=== PATIENT | female | born 1990 | race Caucasian/White ===

== ENCOUNTER → 2020-03-31 20:35 | Observation (INO) | END | disposition home or self-care (01) | LOC: 1NENULAB | PROVIDERS: ADMIT Student in an Organized Health Care Education/Training Program; ATTEND Student in an Organized Health Care Education/Training Program ==

== ENCOUNTER 2020-04-24 05:11 | Inpatient (IN) ==
[2020-04-24] MEDS ORDERED: Azithromycin 500 MG in 0.9 % Sodium Chloride 250 ML IVPB ONE (05:22)
[2020-04-24] MEDS ORDERED: Naloxone 0.4 MG/ML INJ IVP PRN ×2 (05:22→13:47)
[2020-04-24] MEDS ORDERED: Metoclopramide 10 MG/2 ML VIAL IVP PRN ×2 (05:22→13:47)
[2020-04-24] MEDS ORDERED: Famotidine 20 MG/2 ML VIAL IVP PRN (05:22)
[2020-04-24] MEDS ORDERED: Ringers Solution, Lactated 1,000 ML IVC SCH ×2 (05:30→13:47)
[2020-04-24 06:15] LABS: Bilirubin,Urine Negative (Negative); Blood,Urine Negative (Negative); Clarity,Urine Turbid (Clear); Color,Urine Yellow (Yellow); Glucose,Urine (UA) Normal (Normal); Hyaline Casts,Urine Few per lpf (None Seen); Ketones,Urine Negative (Negative); Leukocyte Esterase,Urine Negative (Negative); Mucus,Urine Few per lpf (None-Few); Nitrite,Urine Negative (Negative); PH,Urine 6.5 pH Units (5.0-8.0); Protein,Urine Trace mg/dL (Neg-Trace); RBC,Urine 0-3 per hpf (0-3); Specific Gravity,Urine 1.021 (1.010-1.025); Squamous Epithelial Cell,Urine Moderate per hpf (None-Few); Urobilinogen,Urine Normal (Normal); WBC,Urine 0-3 per hpf (0-3)
[2020-04-24 06:17] LABS: Basophils % 0.2 %; Eosinophils # 0.2 K/mcL (0.0-0.6); Eosinophils % 1.4 %; Hematocrit 37.4 % (35.3-44.9); Hemoglobin 12.1 g/dL (11.5-15.4); Immature Granulocytes % 0.4 % (0-4); Lymphocytes # 2.9 K/mcL (0.6-4.6); Lymphocytes % 23.3 %; Mean Corpuscular HGB Conc 32.4 g/dL (31.6-35.5); Mean Corpuscular Hemoglobin 28.7 pg (28.0-33.3); Mean Corpuscular Volume 88.8 fL (83.0-100.0); Mean Platelet Volume 11.8 fL (9.4-12.4); Monocytes # 0.9 K/mcL (0.0-1.3); Monocytes % 7.2 %; Neutrophils # 8.3 K/mcL (1.6-8.9); Platelet Count 186 K/mcL (140-400); Red Blood Count 4.21 M/mcL (3.82-4.97); Red Cell Distribution Width 16.1 % (11.5-14.5); Segmented Neutrophils % 67.5 %; White Blood Count 12.3 K/mcL (4.3-11.1)
[2020-04-24 06:50] LABS: Amphetamine Screen,Urine Negative ng/mL (Cutoff=1000); Barbiturate Screen,Urine Negative ng/mL (Cutoff=200); Benzodiazepines Screen,Urine Negative ng/mL (Cutoff=300); Cannabinoid Screen,Urine Negative ng/mL (Cutoff = 50); Cocaine Screen,Urine Negative ng/mL (Cutoff= 300); Opiate Screen,Urine Negative ng/mL (Cutoff=300); Phencyclidine Screen,Urine Negative ng/mL (Cutoff=25)
[2020-04-24] MEDS ORDERED: Clindamycin 900 MG/50 ML 900 MG/50 ML IV.SOLN IVPB ONE (07:44)
[2020-04-24] MEDS ORDERED: Ondansetron 4 MG/2 ML VIAL IVP PRN ×2 (08:59→13:47)
[2020-04-24] MEDS ORDERED: Ibuprofen 400 MG TABLET PO PRN (08:59)
[2020-04-24] MEDS ORDERED: *HR* Phenylephrine 10 MG/ML VIAL ONE (09:43)
[2020-04-24] MEDS ORDERED: Ondansetron 4 MG/2 ML VIAL ONE (09:43)
[2020-04-24] MEDS ORDERED: Ketorolac 30 MG/ML VIAL ONE (09:43)
[2020-04-24] MEDS ORDERED: EPHEDrine 50 MG/ML VIAL ONE (09:43)
[2020-04-24] MEDS ORDERED: Acetaminophen IV 1,000 MG/100 ML INFUS..BTL ONE (09:43)
[2020-04-24] MEDS ORDERED: Ringers Solution, Lactated 1,000 ML ONE (09:43)
[2020-04-24] MEDS ORDERED: Dexamethasone 4 MG/ML VIAL ONE (09:43)
[2020-04-24] MEDS ORDERED: *HR* Oxytocin 10 UNIT/ML VIAL IM ONE (09:43)
[2020-04-24] MEDS ORDERED: Oxytocin 20 units/ LR 1000 mL 20 UNIT/1,000 ML BAG IVC ONE (10:41)
[2020-04-24] MEDS ORDERED: *HR* OxyCODONE/APAP 5/325 TABLET PO PRN (13:47)
[2020-04-24] MEDS ORDERED: Sennosides 8.6 MG TABLET PO PRN (13:47)
[2020-04-24] MEDS ORDERED: Rho Immune Globulin 1,500 UNIT SYRINGE IM ONE (13:47)
[2020-04-24] MEDS ORDERED: Ibuprofen 600 MG TABLET PO PRN (13:47)
[2020-04-24] MEDS ORDERED: Oxytocin 20 units/ LR 1000 mL 20 UNIT/1,000 ML BAG IVC SCH ×2 (13:47)
[2020-04-24] MEDS ORDERED: Simethicone 80 MG TAB.CHEW PO PRN (13:47)
[2020-04-24] MEDS ORDERED: Ketorolac 15 MG/ML VIAL IVP SCH (13:47)
[2020-04-24] MEDS: metroNIDAZOLE 500 MG TABLET PO SCH ×2 (15:24→21:07)
[2020-04-24] MEDS: cephALEXin 500 MG CAPSULE PO SCH ×2 (15:24→21:08)
[2020-04-24] MEDS: *HR* Metformin 500 MG TABLET PO SCH (17:22)
[2020-04-24] MEDS ORDERED: *HR* Enoxaparin 40 MG/0.4 ML SYRINGE SQ ONE (20:00)
[2020-04-25 07:08] LABS: Basophils % 0.2 %; Eosinophils # 0.1 K/mcL (0.0-0.6); Eosinophils % 0.7 %; Hematocrit 28.4 % (35.3-44.9); Immature Granulocytes % 0.3 % (0-4); Lymphocytes # 3.1 K/mcL (0.6-4.6); Lymphocytes % 25.5 %; Mean Corpuscular Hemoglobin 29.4 pg (28.0-33.3); Mean Corpuscular Volume 91.9 fL (83.0-100.0); Mean Platelet Volume 11.9 fL (9.4-12.4); Monocytes % 8.4 %; Neutrophils # 7.9 K/mcL (1.6-8.9); Platelet Count 177 K/mcL (140-400); Red Blood Count 3.09 M/mcL (3.82-4.97); Red Cell Distribution Width 16.2 % (11.5-14.5); Segmented Neutrophils % 64.9 %; White Blood Count 12.2 K/mcL (4.3-11.1)
[2020-04-25 07:16] LABS: Hemoglobin 9.1 g/dL (11.5-15.4)
[2020-04-25] MEDS: *HR* Metformin 500 MG TABLET PO SCH (07:25)
[2020-04-25 07:55] VITALS: BP 114/71
[2020-04-25] MEDS ORDERED: Prenatal Vit/FA 1 EACH TABLET PO SCH (09:00)
[2020-04-25] MEDS: cephALEXin 500 MG CAPSULE PO SCH (09:35)
[2020-04-25] MEDS: metroNIDAZOLE 500 MG TABLET PO SCH (09:35)
== END 2020-04-25 14:30 | disposition home or self-care (01) | DRG 785 ==
LOC: 1NENULAB 05:11 → 1NENUOBS 12:39
PROVIDERS: ADMIT Obstetrics & Gynecology; ATTEND Obstetrics & Gynecology